=== PATIENT | female | born 1930 | race Caucasian/White ===

== ENCOUNTER → 2017-04-14 | Outpatient (CLI) | payer BC ==
[~2017-04-14] MED LIST: ADVINUNK INH; ALBUAER2 INH; ATOR10TA82 PO; BNC/40 PO; CHOL100010 PO; IBUP-103 PO; MGN PO; MULT-506 PO; OFLO0.3S4 OPR; PRED1SUS3 OPL; PRLSR20 PO
== END | disposition home or self-care (01) ==
LOC: C.RDSM 10:02
PROVIDERS: ATTEND Physical Medicine & Rehabilitation Sports Medicine
DX: M25.561 Pain in right knee (principal); M17.12 Unilateral primary osteoarthritis, left knee